=== PATIENT | male | born 1990 | race Caucasian/White ===

== ENCOUNTER 2016-12-16 07:33 | Day surgery (SDC) | payer BC ==
[2016-12-16] VITALS (7 sets, daily range): BP systolic 113–134; BP diastolic 75–82; PULSE 59–78; TEMP 97.1–98.7
[~2016-12-16] VITALS: Ht 172.7 cm; Wt 89.0 kg
[2016-12-16] MEDS ORDERED: PRILOSEC 20MG20 MG PO (08:26)
[2016-12-16] MEDS ORDERED: NORCO 325 MG-51 TAB PO (10:03)
== END 2016-12-16 12:00 | disposition home or self-care (01) ==
LOC: SDCO 07:33
DX: K60.3 Anal fistula (principal)
CPT/HCPCS: J0690; J1100; J1885; J2405; J2704; J3010; J7120